=== PATIENT | male | born 1980 | race Caucasian/White ===

== ENCOUNTER 2020-05-02 15:44 | Emergency (ER) | payer OTHER, MEDICAID, SELFPAY ==
[2020-05-02 15:49] VITALS: PULSE 94; O2SAT 97
[2020-05-02 15:50] VITALS: BP 163/107; PULSE 91; RESP 15; TEMP 36.9; O2SAT 96; O2SAT 98; BMI 35.6
[2020-05-02 16:50] VITALS: PULSE 70; O2SAT 98
[2020-05-02 16:51] VITALS: BP 150/100; PULSE 73; O2SAT 97
--- NOTE | 2020-05-02 18:09 | ED_ITS ---
HPI - Extremity Problem General Chief complaint: Extremity Problem,Nontraumatic Stated complaint: lt leg numbness, ankle swelling Time Seen by Provider: 05/02/20 17:53 Source: patient Mode of arrival: Ambulatory Limitations: no limitations History of Present Illness HPI Narrative: 40-year-old male nonsmoker with noncontributory medical history presents with his in the chief complaint of left-sided lower back and hip pain for the past month and a half. He denies any traumatic injury nor fever or chills. He does not use blood thinners and denies any history of IV drug abuse. His pain worsens with motion and improves with rest. The pain radiates initially down into his left hip and lateral thigh but over the past few days has gone lower down his leg. It is largely sharp and stabbing and severe in gissel ure. He denies any loss of control of bowel or bladder. He denies any weakness but does admit to some numbness. He denies footdrop. MD Complaint: extremity pain Onset (ago): day(s) Pain Consistency: constant Location: left Quality: burning, stabbing and sharp Radiation: distal Relieving factors: movement Exacerbating factors: range of motion, weight bearing and walking Associated symptoms: denies other symptoms Related Data Previous Rx's Medication Instructions Recorded bupropion HCl 200 mg tablet,12 hr 200 mg PO BID #60 each 05/05/18 sustained-release lorazepam 1 mg tablet 1 mg PO BID #60 tab 05/05/18 gabapentin 300 mg PO BEDTIME #14 cap 05/02/20 prednisone See Rx Instructions .ROUTE 05/02/20 .COMPLEX #30 tab Allergies Allergy/AdvReac Type Severity Reaction Status Date / Time No Known Drug Allergies Allergy Verified 05/05/18 08:55 Review of Systems Constitutional Constitutional: Denies chills, Denies fatigue, Denies fever(s), Denies frequent falls, Denies lethargy and Denies weakness Eyes Eyes: Denies change in vision, Denies eye discharge, Denies irritation and Denies loss of vision ENT Ears, Nose, Mouth, and Throat: Denies change in voice, Denies dizziness, Denies neck pain, Denies sore throat and Denies throat swelling Cardiovascular Cardiovascular: Denies chest pain, Denies irregular heart rhythm, Denies lightheadedness, Denies palpitations, Denies dyspnea, Denies dyspnea on exertion and Denies orthopnea Respiratory Respiratory: Denies cough, Denies dyspnea, Denies dyspnea on exertion and Denies wheezing Gastrointestinal Gastrointestinal: Denies abdominal pain, Denies change in bowel habits, Denies diarrhea, Denies nausea and Denies vomiting Musculoskeletal Musculoskeletal: Reports back pain, Denies neck pain, Reports numbness and Reports radiating pain into limb Integumentary/Breasts Skin/Breast: Denies pruritus, Denies erythema, Denies rash and Denies wounds Neurologic Neurologic: Denies behavioral changes, Denies confusion, Denies dizziness, Denies frequent falls, Denies loss of vision, Reports numbness and Denies weakness Psychiatric Psychiatric: Denies anxiety, Denies behavioral changes, Denies confusion, Denies depression, Denies homicidal ideation and Denies suicidal ideation Endocrine Endocrine: Denies fatigue, Denies flushing and Denies palpitations Hematologic/Lymphatic Hematologic/Lymphatic: Denies easy bruising Allergic/Immunologic Allergic/Immunologic: Denies urticaria, Denies throat swelling and Denies wheezing Patient History Medical History Anxiety Depression Kidney stones (01/2014) PTSD (post-traumatic stress disorder) Surgical History History of removal of cyst (06/01/14) History of tonsillectomy History of vasectomy (07/27/15) Social History Smoking Status: Never smoker second hand exposure: Yes alcohol intake: current substance use type: marijuana Smoking Status: Never smoker Exam Narrative Exam Narrative: GENERAL: [40] year old patient appears stated age. Well- nourished, well-developed patient, in mild distress. HEAD: Atraumatic. Normocephalic. EYES: Pupils equal round and reactive. Extraocular motions intact. No scleral icterus. No injection or drainage. ENT: Nose without bleeding, purulent drainage. Throat without erythema, tonsillar hypertrophy or exudate. Airway patent. NECK: Trachea midline. Non tender CARDIOVASCULAR: Regular rate and rhythm without murmurs, gallops, or rubs. RESPIRATORY: Clear to auscultation. Breath sounds equal bilaterally. No wheezes, rales, or rhonchi. GASTROINTESTINAL: Abdomen soft, non-tender, nondistended. EXTREMITIES: No edema or joint tenderness. BACK: bricklayer tender but free of any obvious external abnormalities. Patient exam notes decreased range of motion and muscle spasm, but no CVA tenderness, or vertebral point tenderness. There are no symptoms of cauda equina such as saddle anesthesia, and decreased reflexes, decreased sensation or strength. NEURO: AOx3. SKIN: No rash or erythema of visible areas Initial Vital Signs Initial Vital Signs: Vital Signs Pulse Rate 94 H 05/02/20 15:49 Pulse Oximetry 97 05/02/20 15:49 Course Orders Ordered: ED Orders 05/02/20 18:14 MR lumbar spine wo con Stat Discontinued Medications Lorazepam (Lorazepam 0.5 Mg Tablet) 0.5 mg PO NOW ONE Stop: 05/02/20 18:20 Last Admin: 05/02/20 18:34 Dose: 0.5 mg Documented by: DARIAN Prednisone (Prednisone 20 Mg Tablet) 40 mg PO NOW ONE Stop: 05/02/20 22:06 Last Admin: 05/02/20 22:15 Dose: 40 mg Documented by: CATALINO Vital Signs Vital signs: Vital Signs - 8 hr 05/02/20 16:50 05/02/20 16:51 05/02/20 22:01 Pulse Rate 70 73 74 Respiratory Rate 16 Blood Pressure 150/100 H 133/87 Pulse Oximetry 98 97 96 MDM - Extremity (Nontraumatic) Imaging Data Lumbar MRI: Radiologist's Impression: [address] [id number] Resonance ReportSigned Patient: Brijesh Parra R#: [id number]: 1980Acct:[id number]/Sex: 40 / MDate of Service: 05/02/20Loc: EDAccession Number: [id number] Procedure: MR lumbar spine wo con Ordering Provider: Dorian Buchanan D.O. PROCEDURE: MR LUMBAR SPINE WO CON INDICATIONS: left leg pain, numbness, weakness, saddle anesthesia TECHNIQUE: Noncontrast sagittal T1 spin echo and T2 fast echo, sagittal STIR, axial T1 and T2 fast spin echo through the lumbar spine. In cases with scoliosis, additional coronal T2 fast spin echo may be performed. COMPARISON: [facility], CT, KIDNEY/ URETER/BLADDER, 01/25/2014, 4:10. FINDINGS: Image quality: Excellent. Alignment and Curvature: There is normal bony alignment. There are 6 lumbar type vertebral bodies, variant. This is confirmed on prior CT from 2013. Bone Marrow: Marrow is of normal overall signal. No acute vertebral body compression fractures. Spinal Cord: Conus medullaris terminates at the L2 level. Visualized cord demonstrates normal signal and size. Paraspinous Soft Tissues: No paravertebral masses. T12-L1: Mild disc space height loss. No significant disc bulge. No significant central canal or neural foraminal narrowing. L1-L2: Mild disc space height loss. No significant disc bulge. No significant central canal or neural foraminal narrowing. L2-L3: Minimal disc bulge. No significant central canal or neural foraminal narrowing. L3-L4: No significant disc bulge. No significant central canal or neural liban inal narrowing. L4-L5: No significant disc bulge. No significant central canal or neural foraminal narrowing. L5-L6: Mild broad-based disc bulge. Mild disc space height loss. Disc desiccation. No significant disc bulge. No significant central canal or neural foraminal narrowing. L6-S1: Left paracentral disc extrusion, (08/06 and 04/18). There is contact with the left exiting S1 nerve roots. Moderate intervertebral disc space height loss. Mild central canal narrowing. Mild left neural foraminal narrowing. IMPRESSION: L6-S1 left paracentral disc extrusion which contacts the exiting nerve roots. Dictated by: Michale Michael M.D. on 05/02/2020 at 21:50 Approved by: Michael Michael M.D. on 05/02/2020 at 22:01 Discharge Plan Departure Patient Disposition: Home Clinical Impression: Acute left lumbar radiculopathy Instructions: DI for Lumbar Radiculopathy Activity Restrictions/Additional Instructions: *You have been diagnosed with [left leg pain and numbness due to a disc pressing on a peripheral nerve] *What to do: *Take medications as directed *Follow up with your primary care provider in 2-3 days, call for an appointment. Let them know you were seen in the Emergency Department and that we ask that you be seen in follow up *Return to ER if you should have any new, worsening or concerning symptoms, such as [increasing pain, numbness, weakness, trouble controlling bowel or bladder, fever greater than 101 F, or other bothersome symptoms] Prescriptions: New prednisone 10 mg tablet See Rx Instructions .ROUTE .COMPLEX Qty: 30 RF: 0 gabapentin 300 mg capsule 300 mg PO BEDTIME Qty: 14 RF: 0 No Action bupropion HCl 200 mg tablet sustained-release 12 hr 200 mg PO BID Qty: 60 RF: 3 lorazepam 1 mg tablet 1 mg PO BID Qty: 60 RF: 3 Referrals: Paris Dejesus PA-C [Primary Care Provider] - Cesar Morse MD [Physician] -
--- NOTE | 2020-05-02 18:14 | DI.MRI.S_ITS ---
PROCEDURE: MR LUMBAR SPINE WO CON INDICATIONS: left leg pain, numbness, weakness, saddle anesthesia TECHNIQUE: Noncontrast sagittal T1 spin echo and T2 fast echo, sagittal STIR, axial T1 and T2 fast spin echo through the lumbar spine. In cases with scoliosis, additional coronal T2 fast spin echo may be performed. COMPARISON: [facility], [place], KIDNEY/ URETER/BLADDER, 01/25/2014, 4:10. FINDINGS: Image quality: Excellent. Alignment and Curvature: There is normal bony alignment. There are 6 lumbar type vertebral bodies, variant. This is confirmed on prior CT from 2013. Bone Marrow: Marrow is of normal overall signal. No acute vertebral body compression fractures. Spinal Cord: Conus medullaris terminates at the L2 level. Visualized cord demonstrates normal signal and size. Paraspinous Soft Tissues: No paravertebral masses. T12-L1: Mild disc space height loss. No significant disc bulge. No significant central canal or neural foraminal narrowing. L1-L2: Mild disc space height loss. No significant disc bulge. No significant central canal or neural foraminal narrowing. L2-L3: Minimal disc bulge. No significant central canal or neural foraminal narrowing. L3-L4: No significant disc bulge. No significant central canal or neural foraminal narrowing. L4-L5: No significant disc bulge. No significant central canal or neural foraminal narrowing. L5-L6: Mild broad-based disc bulge. Mild disc space height loss. Disc desiccation. No significant disc bulge. No significant central canal or neural foraminal narrowing. L6-S1: Left paracentral disc extrusion, (08/06 and 04/18). There is contact with the left exiting S1 nerve roots. Moderate intervertebral disc space height loss. Mild central canal narrowing. Mild left neural foraminal narrowing. IMPRESSION: L6-S1 left paracentral disc extrusion which contacts the exiting nerve roots. Dictated by: Michael Michael M.D. on 05/02/2020 at 21:50 Approved by: Michael Michael M.D. on 05/02/2020 at 22:01
[2020-05-02] MEDS: LORazepam 0.5 MG TABLET PO (18:34)
--- NOTE | 2020-05-02 18:40 | PC.NURSE ---
Pt states he has a strange deep pain intermittently in his L thigh that radiates down to his foot. Everything from his genitals to his L toes occasionally go numb.
[2020-05-02 22:01] VITALS: BP 133/87; PULSE 74; RESP 16; O2SAT 96
[2020-05-02] MEDS: predniSONE 20 MG TABLET 40 MG PO (22:15)
== END 2020-05-02 23:05 | disposition home or self-care (01) ==
PROVIDERS: Emergency Provider Emergency Medicine; Family Provider Physician Assistant; PCP Physician Assistant
DX: M54.16 Radiculopathy, lumbar region (principal); M25.552 Pain in left hip; R20.0 Anesthesia of skin
CPT/HCPCS: 72148; 99283

== ENCOUNTER → 2020-06-21 07:49 | Outpatient (CLI) | payer OTHER, MEDICAID, SELFPAY ==
[2020-06-21 08:32] LABS: Hemoglobin A1C% w Est Avg Glu 5.6 % (4.0-6.0)
[2020-06-21 08:44] LABS: Alanine Aminotransferase 47 IU/L (<50); Albumin 4.5 g/dL (3.5-5.0); Albumin Globulin Ratio 1.5 (1.0-2.8); Alkaline Phosphatase 84 U/L (38-126); Aspartate Aminotransferase 33 IU/L (17-59); BUN Creatinine Ratio 24.4 (6-22); Bilirubin Total 0.3 mg/dL (0.2-1.3); Blood Urea Nitrogen 21 mg/dL (9-20); Calcium 9.2 mg/dL (8.4-10.2); Carbon Dioxide 26 mmol/L (22-32); Chloride 104 mmol/L (98-107); Cholesterol 166 mg/dL (140-199); Estimated Glomerular Filt Rate > 60.0 mL/min (>60); Globulin 3.1 g/dL (1.7-4.1); Glucose 92 mg/dL (70-100); HDL Cholesterol 30 mg/dL (40-60); HEMOLYSIS < 15 (0-50); LDL Cholesterol Calculated 92 mg/dL (<100); Potassium 4.4 mmol/L (3.4-5.1); Sodium 140 mmol/L (137-145); Total Protein 7.6 g/dL (6.3-8.2); Triglycerides 221 mg/dL (35-150)
== END ==
PROVIDERS: Family Provider Physician Assistant; PCP Family Medicine; Referring Provider Family Medicine; Visit Provider Family Medicine
DX: F41.8 Other specified anxiety disorders (principal); F43.10 Post-traumatic stress disorder, unspecified; M54.5 Low back pain
CPT/HCPCS: 36415; 80053; 80061; 83036

== ENCOUNTER → 2020-08-16 08:37 | Outpatient (CLI) | payer OTHER, MEDICAID, SELFPAY ==
[2020-08-16 09:18] LABS: Add Manual Diff / Slide Review NO; Basophils Absolute Auto 100 /uL (0-100); Basophils Percent Auto 1.1 % (0-2); Eosinophils Absolute Auto 200 /uL (0-450); Eosinophils Percent Auto 2.3 % (2-4); Hematocrit 43.8 % (41-53); Lymphocytes Absolute Auto 2800 /uL (1100-4500); Lymphocytes Percent Auto 32.3 % (25-40); Mean Corpuscular HGB Conc 34.2 % (30-36); Mean Corpuscular Hemoglobin 29.7 PG (26-34); Mean Corpuscular Volume 86.9 fL (80-100); Monocytes Absolute Auto 600 /uL (0-900); Monocytes Percent Auto 6.6 % (3-14); Neutrophils Absolute Auto 5000 /uL (1500-7000); Neutrophils Percent Auto 57.7 % (50-75); Platelet Count 293 X10^3/uL (150-400); Red Blood Cell Count 5.04 X10^6/uL (4.5-5.9); Red Cell Distribution Width 12.7 % (11.6-14.8); White Blood Cell Count 8.6 X10^3/uL (4.5-11.0)
[2020-08-16 10:22] LABS: Alanine Aminotransferase 47 IU/L (<50); Albumin 4.4 g/dL (3.5-5.0); Albumin Globulin Ratio 1.5 (1.0-2.8); Alkaline Phosphatase 85 U/L (38-126); Aspartate Aminotransferase 29 IU/L (17-59); BUN Creatinine Ratio 15.1 (6-22); Bilirubin Total 0.4 mg/dL (0.2-1.3); Blood Urea Nitrogen 13 mg/dL (9-20); Calcium 10.1 mg/dL (8.4-10.2); Carbon Dioxide 26 mmol/L (22-32); Chloride 103 mmol/L (98-107); Estimated Glomerular Filt Rate > 60.0 mL/min (>60); Glucose 124 mg/dL (70-100); HEMOLYSIS < 15 (0-50); Lactate Dehydrogenase 383 U/L (313-618); Potassium 4.1 mmol/L (3.4-5.1); Sodium 140 mmol/L (137-145); Total Protein 7.4 g/dL (6.3-8.2)
== END ==
PROVIDERS: Family Provider Physician Assistant; PCP Family Medicine; Referring Provider Family Medicine; Visit Provider Family Medicine
DX: J03.90 Acute tonsillitis, unspecified (principal); R53.83 Other fatigue
CPT/HCPCS: 36415; 80053; 83615; 85025

== ENCOUNTER → 2022-10-29 14:44 | Outpatient (CLI) | payer OTHER, MEDICAID, SELFPAY ==
--- NOTE | 2022-10-29 14:45 | DI.US.S_ITS ---
PROCEDURE: US SCROTUM INDICATIONS: LEFT TESTICULAR PAIN TECHNIQUE: Real-time scanning was performed of the scrotum and testicles, with image documentation. Color and pulse Doppler interrogation was performed of both testicles. COMPARISON: None. FINDINGS: Right: 4.4 x 2.6 x 3.6 centimeters. Echotexture is homogeneous. Small hydrocele varicocele is present. Normal epididymal thickness. Heterogeneous echotexture. Left: 4.4 x 2.5 x 3.8 centimeters. Echotexture is homogeneous. Small hydrocele. Varicocele is present. Normal epididymal thickness. Heterogeneous echotexture with multiple small epididymal head cysts. Doppler: Color and pulse Doppler demonstrate normal and symmetric arterial flow in both testicles. IMPRESSION: No evidence of torsion. Overall symmetric epididymis and testicular vascularity. Bilateral varicoceles. Small bilateral hydroceles. Dictated by: Austyn Montalvo M.D. on 10/29/2022 at 16:51 Approved by: Austyn Montalvo M.D. on 10/29/2022 at 16:53
== END ==
PROVIDERS: Family Provider Physician Assistant; PCP Family Medicine; Referring Provider Physician Assistant; Visit Provider Physician Assistant
DX: N50.812 Left testicular pain (principal); I86.1 Scrotal varices; N43.3 Hydrocele, unspecified
CPT/HCPCS: 76870